=== PATIENT | male | born 1950 | race Caucasian/White ===

== ENCOUNTER 2017-10-22 07:29 | Day surgery (SDC) | payer MEDICARE ==
[~2017-10-22] VITALS: Ht 185.4 cm; Wt 114.2 kg
[2017-10-22] MEDS ORDERED: METO50ER (08:02)
[2017-10-22] MEDS ORDERED: WARF2 (08:02)
[2017-10-22] MEDS ORDERED: RAMI5 (08:03)
== END 2017-10-22 09:39 | disposition home or self-care (01) ==
LOC: ORSCSDS 07:29
PROVIDERS: Internal Medicine Gastroenterology
PROC: 0DBK8ZX Excision of Ascending Colon, Via Natural or Artificial Opening Endoscopic, Diagnostic (ICD-10-PCS; principal; 2017-10-22 08:45)
PROC: 0DBN8ZX Excision of Sigmoid Colon, Via Natural or Artificial Opening Endoscopic, Diagnostic (ICD-10-PCS; principal; 2017-10-22 08:45)
DX: Z12.11 Encounter for screening for malignant neoplasm of colon (principal); D12.2 Benign neoplasm of ascending colon; D12.5 Benign neoplasm of sigmoid colon; K64.8 Other hemorrhoids; I10 Essential (primary) hypertension; I48.91 Unspecified atrial fibrillation; E66.9 Obesity, unspecified; Z68.33 Body mass index [BMI] 33.0-33.9, adult; Z79.899 Other long term (current) drug therapy
CPT/HCPCS: 88305; J7120

== ENCOUNTER → 2018-07-24 | Outpatient (CLI) | payer MEDICARE ==
[~2018-07-24] MED LIST: METO50ER; RAMI5; WARF2
[2018-07-24 13:49] LABS: International Normalized Ratio 2.89; Prothrombin Time Results 27.8 Sec (9.7-11.5)
[2018-07-24 13:56] LABS: CHOL/HDL RATIO 4.5; Cholesterol 136 mg/dL (50-200); HDL Cholesterol 30 mg/dL (>39); LDL/HDL RATIO 2.9; Low Density Lipoprotein Chol 87 mg/dL (0-110); Triglycerides 93 mg/dL (30-160); Very Low Density Lipoprot Chol 18 mg/dL (6-32)
== END ==
LOC: LAB SHORT 10:06 → LAB SRC 10:06
PROVIDERS: Nurse Practitioner Family
DX: I48.91 Unspecified atrial fibrillation (principal); I10 Essential (primary) hypertension
CPT/HCPCS: 36415; 80061; 85610

== ENCOUNTER 2021-08-09 09:41 | Day surgery (SDC) | payer MEDICARE ==
[~2021-08-09] VITALS: Ht 185.4 cm; Wt 108.6 kg
[~2021-08-09 09:41] MED LIST changes: +FLUO.01TC
--- NOTE | 2021-08-09 11:17 | NUR ---
08/09/21 1117 TeriCaroline Golden History, Chart, Medications and Allergies reviewed before start of procedure. Patient confirms NPO status and agrees with scheduled surgery. 3-LEAD EKG REVIEWED WITH PHYSICIAN PRIOR TO START OF PROCEDURE. MONITOR INTACT WITH CONTINUOUS PULSE OXIMETRY AND INTERMITTENT BP. PATIENT DETERMINED TO BE ASA APPROPRIATE FOR PROPOFOL SEDATION PRIOR TO START OF PROCEDURE BY AFTER ANESTHESIA CONSULT WITH DR. PEREZ
--- NOTE | 2021-08-09 12:40 | NUR ---
Patient up to Ambulate independently. Gait steady. Discharge instructions reviewed with patient. Patient verbalizes understanding. Copy given to patient to take home. Discharged via wheelchair to private car for ride home.
== END 2021-08-09 23:31 | disposition home or self-care (01) ==
LOC: ORSCMMR 09:41 → ORSCSDS 10:45 → ORSCMMR 10:45 → ORD 10:45 → ORSCMMR 23:31
PROVIDERS: Internal Medicine Gastroenterology
PROC: 0DJD8ZZ Inspection of Lower Intestinal Tract, Via Natural or Artificial Opening Endoscopic (ICD-10-PCS; principal; 2021-08-09 10:45)
DX: Z12.11 Encounter for screening for malignant neoplasm of colon (principal); Z86.010 Personal history of colon polyps; K64.8 Other hemorrhoids; I42.9 Cardiomyopathy, unspecified; I10 Essential (primary) hypertension; E66.9 Obesity, unspecified; Z68.30 Body mass index [BMI] 30.0-30.9, adult; Z79.01 Long term (current) use of anticoagulants; Z79.899 Other long term (current) drug therapy
CPT/HCPCS: J2250; J2704; J7120